=== PATIENT | male | born 1980 | race Caucasian/White ===

== ENCOUNTER 2025-01-30 03:10 | Emergency (ER) | payer SELFPAY ==
[2025-01-30] VITALS (8 sets, daily range): BP systolic 124–131; BP diastolic 67–75; PULSE 48–66; RESP 12–18; TEMP 37.6; O2SAT 96–98; BMI 21.2
--- NOTE | 2025-01-30 03:20 | ECG_ITS ---
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
--- NOTE | 2025-01-30 03:20 | XRR_ITS ---
PROCEDURE INFORMATION: Exam: XR Chest Exam date and time: 01/30/2025 3:25 AM Age: 44 years old Clinical indication: Other: Light headedness; Additional info: Lightheadedness TECHNIQUE: Imaging protocol: Radiologic exam of the chest. Views: 1 view. COMPARISON: No relevant prior studies available. FINDINGS: Lungs: Unremarkable. No consolidation. Pleural spaces: Unremarkable. No pleural effusion. No pneumothorax. Heart/Mediastinum: Unremarkable. No cardiomegaly. Bones/joints: Unremarkable. XR/XR chest 1V portable [id number] IMPRESSION: No acute findings.
[2025-01-30] MEDS: LORazepam 1 MG/0.5 ML injection 0.5 MG IVP (03:40)
[2025-01-30] MEDS: sodium chloride 0.9% 1,000 ML 999 ML IV (03:40)
[2025-01-30 03:43] LABS: Basophils % 0.3 %; Eosinophils % 0.3 %; Hematocrit 45.6 % (37-53); Lymphocytes # 2.3 10^3/uL (0.8-4.8); Lymphocytes % 24.1 %; Mean Corpuscular HGB Conc 34.4 g/dL (30-55); Mean Corpuscular Hemoglobin 31.8 pg (27-33); Mean Corpuscular Volume 92.3 fl (82-101); Mean Platelet Volume 10.7 fL (7.4-10.4); Monocytes # 0.8 10^3/uL (0.2-0.9); Monocytes % 7.9 %; Neutrophils # 6.33 10^3/uL (1.8-7.7); Nucleated Red Blood Cells % 0 %; Platelet Count 234 10^3/cmm (157-399); Red Blood Count 4.94 10^6/uL (3.85-5.65); Red Cell Distribution Width 12.2 % (12.1-15.1); White Blood Count 9.46 10^3/uL (3.29-11.43)
[2025-01-30 04:03] LABS: Chloride 104 mmol/L (98-107); Potassium 4.2 mmol/L (3.5-5.1); Sodium 140 mmol/L (136-145); Troponin(5th) Baseline < 6 ng/L (0-15)
[2025-01-30 04:04] LABS: Alanine Aminotransferase 13 U/L (0-41); Anion Gap 16.2 (5-19); Aspartate Amino Transferase 18 U/L (0-40); Blood Urea Nitrogen 12 mg/dL (6-20); Calcium 9.8 mg/dL (8.5-10.5); Carbon Dioxide 24 mmol/L (22-29); Creatinine Clr Calc Pharmacy 109.8584; Glomerular Filtration Rate 81.6 mL/min (90-130); Glucose 97 mg/dL (65-115); Osmolality Calculated 290 mOsm/kg (285-295); Total Bilirubin 1.2 mg/dL (0.15-1.2); Total Protein 7.3 g/dL (6.6-8.7)
[2025-01-30 04:05] LABS: Albumin Level 4.8 g/dL (3.5-5.2); Alkaline Phosphatase 90 U/L (40-130); Globulin 2.5 g/dL (1.3-4.6)
--- NOTE | 2025-01-30 04:24 | W.ED.DIZZY ---
HPI - Dizziness General: Chief Complaint: Dizziness Stated Complaint: Dizzy\Finger tips and Nose Numb Time Seen by Provider: 01/30/25 03:20 History of Present Illness: HPI Narrative: Patient is a well-appearing 44-year-old male seen for lightheadedness which he experienced at work today. He states that he felt as if he would pass out and had tingling in his hands and face. He never did lose consciousness but he felt like he might several times when he was walking around prompting visit to the emergency department. He has never felt this before. He works nights and drinks lots of caffeine but has no history of heart disease, recent sickness, fever, dehydration, vomiting, diabetes, or lung disease. He states that sometimes when he stands up he feels transient lightheadedness, but today's symptom was prolonged compared with that. He had no chest pain at the time of his symptoms. Related Data Home Medications ?Medication ?Instructions ?Recorded ?Confirmed No Known Home Medications 01/18/23 01/18/23 Allergies Allergy/AdvReac Type Severity Reaction Status Date / Time No Known Allergies Allergy Verified 01/30/25 03:24 Physical Exam Const: COMMON NORMALS: no acute distress, patient oriented x3 and alert HENMT: COMMON NORMALS: normocephalic and atraumatic HEAD & SCALP: normocephalic and atraumatic Eye: COMMON NORMALS: Equal, round and reactive pupils present, EOMs intact bilaterally and no scleral icterus PUPIL: Yes Equal, round and reactive pupils present Resp: COMMON NORMALS: normal respiratory effort and No retractions Cardio: COMMON NORMALS: regular rate, regular rhythm and No murmurs present (Cardio) RATE: regular rate RHYTHM: regular rhythm GI: COMMON NORMALS: Normal to inspection, nondistended, normoactive bowel sounds present, Soft to palpation and non-tender PALPATION: Yes Soft to palpation Neuro: COMMON NORMALS: patient oriented x3 SENSORIUM/ORIENTATION: Yes alert Skin: COMMON NORMALS: no rashes or lesions noted GENERAL SKIN EXAM: no rashes or lesions noted Course Vital Signs: Vital signs: Vital Signs Temperature 99.6 F 01/30/25 03:16 Pulse Rate 59 L 01/30/25 03:54 Respiratory Rate 16 01/30/25 03:54 Blood Pressure 131/75 01/30/25 03:24 Pulse Oximetry 96 01/30/25 03:54 Oxygen Delivery Me thod Room Air 01/30/25 03:16 MDM - Dizziness Medical Decision Making In summary, patient is a well-appearing 44-year-old male seen for lightheadedness which resolved spontaneously. He had no concomitant chest pain or other worrisome features. Labs and EKG are unremarkable. I strongly suspect vasovagal etiology to his symptoms. After receiving a liter of IV fluid he feels much better and is able to stand up and walk around without any lightheadedness. I do not suspect a stroke, PE, arrhythmia, or any other emergent process warranting further workup at this time and he will be discharged home in stable and improved condition. Lab Data 01/30/25 03:38 01/30/25 03:38 Radiology Impressions Chest X-Ray 01/30/25 03:20 IMPRESSION: No acute findings. Laboratory Results WBC 9.46 10^3/uL (3.29-11.43) 01/30/25 03:38 RBC 4.94 10^6/uL (3.85-5.65) 01/30/25 03:38 Hgb 15.70 g/dL (11.27-16.99) 01/30/25 03:38 Hct 45.6 % (37-53) 01/30/25 03:38 MCV 92.3 fl (82-101) 01/30/25 03:38 MCH 31.8 pg (27-33) 01/30/25 03:38 MCHC 34.4 g/dL (30-55) 01/30/25 03:38 RDW 12.2 % (12.1-15.1) 01/30/25 03:38 Plt Count 234 10^3/cmm (157-399) 01/30/25 03:38 MPV 10.7 fL (7.4-10.4) H 01/30/25 03:38 Neut % (Auto) 67.0 % 01/30/25 03:38 Lymph % (Auto) 24.1 % 01/30/25 03:38 [place] % (Auto) 7.9 % 01/30/25 03:38 Eos % (Auto) 0.3 % 01/30/25 03:38 Baso % (Auto) 0.3 % 01/30/25 03:38 Neut # (Auto) 6.33 10^3/uL (1.8-7.7) 01/30/25 03:38 Lymph # (Auto) 2.3 10^3/uL (0.8-4.8) 01/30/25 03:38 [place] # (Auto) 0.8 10^3/uL (0.2-0.9) 01/30/25 03:38 Eos # (Auto) 0.0 10^3/uL (0.0-0.8) 01/30/25 03:38 Baso # (Auto) 0.0 10^3/uL (0.0-0.1) 01/30/25 03:38 Nucleated RBC % (auto) 0 % 01/30/25 03:38 Nucleated RBCs # 0.0 /100WBC 01/30/25 03:38 Sodium 140 mmol/L (136-145) 01/30/25 03:38 Potassium 4.2 mmol/L (3.5-5.1) 01/30/25 03:38 Chloride 104 mmol/L (98-107) 01/30/25 03:38 Carbon Dioxide 24 mmol/L (22-29) 01/30/25 03:38 Anion Gap 16.2 (5-19) 01/30/25 03:38 BUN 12 mg/dL (6-20) 01/30/25 03:38 Creatinine 1.0 mg/dL (0.7-1.2) 01/30/25 03:38 GFR Calculation 81.6 mL/min (90-130) L 01/30/25 03:38 Glucose 97 mg/dL (65-115) 01/30/25 03:38 Calculated Osmolality 290 mOsm/kg (285-295) 01/30/25 03:38 Calcium 9.8 mg/dL (8.5-10.5) 01/30/25 03:38 Total Bilirubin 1.2 mg/dL (0.15-1.2) 01/30/25 03:38 AST 18 U/L (0-40) 01/30/25 03:38 ALT 13 U/L (0-41) 01/30/25 03:38 Alkaline Phosphatase 90 U/L (40-130) 01/30/25 03:38 Troponin T Baseline < 6 ng/L (0-15) 01/30/25 03:38 Total Protein 7.3 g/dL (6.6-8.7) 01/30/25 03:38 Albumin 4.8 g/dL (3.5-5.2) 01/30/25 03:38 Globulin 2.5 g/dL (1.3-4.6) 01/30/25 03:38 No radiology studies performed this visit EKG Data EKG 1: Interpretation: Time?0346?sinus bradycardia, rate of 54, no ST segment elevation or depression, no T wave inversions, intervals within normal limits. 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
== END 2025-01-30 06:17 | disposition home or self-care (01) ==
PROVIDERS: Emergency Provider Student in an Organized Health Care Education/Training Program
DX: R55 Syncope and collapse (principal)
CPT/HCPCS: 36415; 71045; 80053; 84484; 85025; 93005; 96361; 96374; 99285; J2060; J7030